=== PATIENT | female | born 1965 | race Two or more races ===

== ENCOUNTER 2023-05-26 06:21 | Day surgery (SDC) | payer OTHER ==
[2023-05-19 15:22] LABS: BASOPHILS # (AUTO) 0.1 X10'3 (0-0.2); BASOPHILS % (AUTO) 0.7 % (0-1); EOSINOPHILS # (AUTO) 0.1 X10'3 (0-0.9); EOSINOPHILS % (AUTO) 0.7 % (0-6); LYMPHOCYTES # (AUTO) 2.8 X10'3 (1.1-4.8); LYMPHOCYTES % (AUTO) 34.9 % (21-51); MEAN CORPUSCULAR HGB CONC 33.3 g/dL (33.0-36.5); MEAN CORPUSCULAR VOLUME 87.2 FL (78-98); MEAN PLATELET VOLUME 7.8 FL (7.4-10.4); MONOCYTES # (AUTO) 0.7 X10'3 (0-0.9); MONOCYTES % (AUTO) 8.9 % (2-12); NEUTROPHILS # (AUTO) 4.4 X10'3 (1.8-7.7); NEUTROPHILS % (AUTO) 54.8 % (42-75); PRE OP HEMATOCRIT 41.1 % (35.0-45.0); PRE OP HEMOGLOBIN 13.7 g/dL (12.0-16.0); PRE OP PLATELET COUNT 347 X10'3 (140-440); RED BLOOD COUNT 4.72 X10'6 (4.20-5.60); RED CELL DISTRIBUTION WIDTH 14.7 % (11.5-14.5)
[2023-05-19 15:30] LABS: ALBUMIN 3.4 G/DL (3.4-5.0); ALBUMIN/GLOBULIN RATIO 0.8 (1.1-1.5); ALKALINE PHOSPHATASE 95 IU/L (46-116); BLOOD UREA NITROGEN 10 MG/DL (7-18); BUN/CREATININE RATIO 13.2 (10.0-20.0); CALCIUM 9.4 MG/DL (8.5-10.1); CHLORIDE 101 MMOL/L (99-107); CREATININE 0.76 MG/DL (0.40-0.90); PRE OP ALT 28 U/L (30-65); PRE OP ANION GAP 7 (8-16); PRE OP AST 22 U/L (10-37); PRE OP BILIRUB, TOTAL 0.5 MG/DL (0.0-1.0); PRE OP GLUCOSE 117 MG/DL (70-104); PRE OP POTASSIUM 3.4 MMOL/L (3.4-5.1); PRE OP SODIUM 138 MMOL/L (135-145); TOTAL CARBON DIOXIDE 29.6 MMOL/L (24-32); TOTAL PROTEIN 7.5 G/DL (6.4-8.2); eGFR 78 ML/MIN
[~2023-05-26] VITALS: Ht 154.9 cm; Wt 121.4 kg
[2023-05-26] VITALS (30 sets, daily range): BP systolic 105–165; BP diastolic 71–93; PULSE 65–90; RESP 11–26; TEMP 97.3–99.3; O2SAT 75–98
[~2023-05-26 06:21] MED LIST: TRAM50TA2 PO; famotidine 20mg tablet PO ONE; ringers solution, lacted 1,000 ML IV SCH; tranexamic acid 650mg tablet PO ONE; vancomycin 1,500 MG in NS 300ml IV soln IV ONE
[2023-05-26] MEDS ORDERED: BUPIVACAINE/MELOXICAM 14 ML VIAL IL ONE ×2 (06:53→08:00)
--- NOTE | 2023-05-26 07:00 | NUR ---
CSM: PULSES PRESENT. PATIENT READ BROCHURE AND USED MUPIROCIN CREAM. EDUCATED PATIENT ON THE INCENTIVE SPIROMETER AND ITS IMPORTANCE
--- NOTE | 2023-05-26 07:30 | NUR ---
PATIENT STATES AN ALLERGY TO PCN. SHE SAYS SHE SWELLS UP EVERYWHERE AND HER THROAT STARTS TO CLOSE. NOTIFIED DR KAISER AND HE SAID TO HOLD ANCEF AND ONLY GIVE VANCO.
[2023-05-26] MEDS ORDERED: morphine 2 MG/ML inj. syringe IV PRN (08:05)
[2023-05-26] MEDS ORDERED: ondansetron/PF 4mg/2ml inj IV PRN ×2 (08:05→11:30)
[2023-05-26] MEDS ORDERED: ringers solution, lacted 1,000 ML IV SCH (08:05)
[2023-05-26] MEDS ORDERED: meperidine/PF 25mg/ml syringe IV PRN ×2 (08:05)
[2023-05-26] MEDS ORDERED: morphine 4 MG/ML inj SYRINge IV PRN (08:05)
[2023-05-26] MEDS ORDERED: proCHLORperazine 10 MG/2 ml inj IV PRN (08:05)
[2023-05-26] MEDS ORDERED: MIDAZolam 1mg/ml 10ml vial ONE (09:03)
[2023-05-26] MEDS ORDERED: fentaNYL/PF 50MCG/1 ML 2ML syringe ONE (09:03)
[2023-05-26] MEDS ORDERED: ROPIVAcaine 0.5% (5mg/ml) 30ml vial ONE (11:03)
[2023-05-26] MEDS ORDERED: propofol inj 20 ML IV ONE (11:19)
[2023-05-26] MEDS ORDERED: acetaminophen 1,000mg/100ml IV 100 ML IV ONE (11:21)
--- NOTE | 2023-05-26 11:26 | NUR ---
Received from OR via HOSPITAL BED TO RR 5, accompanied by Anesthesiologist AWILDA and report given by Anesthesiologist. PT PRESENTS ON RA, VSS. PT PRESENTS WITH 7/10 PAIN TO RIGHT LEG. WILL GIVE PAIN MEDICATION AND REASSESS. NO C/O N/V AND NO S/S OF DISTRESS. LR RUNNING THRU PIV IN LEFT FA (IV TYLENOL STARTED PER MD IN ROOM). RIGHT LEG DRESSING CDI WITH WRAP AND POWDER PACK IN PLACE. LEGS ELEVATED AND SCD'S ARE ON.
[2023-05-26] MEDS: meperidine/PF 25mg/ml syringe IV PRN ×2 (11:28→11:51)
[2023-05-26] MEDS ORDERED: bisacodyl 10mg suppository rectal RC PRN (11:30)
[2023-05-26] MEDS ORDERED: acetaminophen 325mg tablet PO PRN (11:30)
[2023-05-26] MEDS ORDERED: HYDROmorphone 1 mg/ml syringe IV PRN (11:30)
[2023-05-26] MEDS ORDERED: magnesium hydroxide 30ml (MOM) UD suspension PO PRN (11:30)
[2023-05-26] MEDS ORDERED: traMADol 50MG tablet PO PRN (11:30)
[2023-05-26] MEDS ORDERED: diphenhydrAMINE 25mg capsule PO PRN ×2 (11:30)
[2023-05-26] MEDS ORDERED: HYDROmorphone inj. 0.5 MG/0.5 ML DISP.SYRIN IV PRN (11:30)
[2023-05-26] MEDS ORDERED: naloxone 0.4 mg/ml inj IV PRN (11:30)
--- NOTE | 2023-05-26 11:57 | NUR ---
CALLED RUSSELL QUIÑONEZ [phone] WITH UPDATE ON PATIENT STATUS
--- NOTE | 2023-05-26 12:45 | NUR ---
REPOSITIONED FOR COMFORT
[2023-05-26] MEDS: potassium cl 20mEq in 1/2 NS 1,000 ML IV SCH ×2 (12:50→20:03)
[2023-05-26] MEDS: oxyCODONE IR 5mg (immed. release) tablet PO PRN ×3 (13:14→21:53)
--- NOTE | 2023-05-26 13:45 | NUR ---
PATIENT IS SITTING UP IN BED EATING LUNCH
[2023-05-26] MEDS: acetaminophen 325mg tablet PO SCH ×2 (14:00→19:52)
--- NOTE | 2023-05-26 14:23 | NUR ---
PLACED PURE WICK AND ATTACHED TO LOW CONTINUOS SUCTION
[2023-05-26] MEDS ORDERED: ceFAZolin/D5W- 1GM premix 50 ML IV SCH (16:00)
--- NOTE | 2023-05-26 16:45 | NUR ---
CALLED RUSSELL QUIÑONEZ WITH ROOM NUMBER
[2023-05-26] MEDS: ceFAZolin/D5W- 1GM premix 50 ML IV SCH (17:00)
--- NOTE | 2023-05-26 17:06 | NUR ---
PATIENT STABLE FOR TRANSFER PER MD ORDERS. PATIENT TRANSFERRED TO ROOM 4014A WITH ALL PERSONAL BELONGINGS. REPORT CALLED TO NURSE SANCHEZ AND ALL QUESTIONS, COMMENTS, AND CONCERNS WERE ANSWERED AT THIS TIME. PATIENT WAS HOOKED UP TO POST OP VITALS AND CALL LIGHT IN HAND. RIGHT KNEE DRESSING REMAINS CLEAN, DRY, AND INTACT, POWDER PACK IN PLACE. BED LOCKED AND LOW, 2 RAILS UP. PURE WICK WAS HOOKED UP TO SUCTION AND NURSE ALVARENGA AWARE OF TRANSFER.
--- NOTE | 2023-05-26 18:25 | NUR ---
Problems reprioritized. Patient report given, questions answered & plan of care reviewed with GUANAKO Santiago.
[2023-05-26] MEDS ORDERED: vancomycin/NS 1 GM ADD-VANTAGE 250 ML IV SCH (20:00)
[2023-05-26] MEDS ORDERED: sennosides 8.6mg tablet PO SCH (21:00)
[2023-05-27] MEDS: ceFAZolin/D5W- 1GM premix 50 ML IV SCH (01:00)
[2023-05-27 02:00] VITALS: BP 153/76; PULSE 89; RESP 20; TEMP 99.8; O2SAT 95
[2023-05-27] MEDS: acetaminophen 325mg tablet PO SCH ×2 (02:31→08:38)
[2023-05-27] MEDS: potassium cl 20mEq in 1/2 NS 1,000 ML IV SCH ×2 (03:11→05:00)
[2023-05-27] MEDS: oxyCODONE IR 5mg (immed. release) tablet PO PRN ×2 (04:58→11:41)
[2023-05-27 06:00] VITALS: BP 159/87; PULSE 86; RESP 16; TEMP 98.3; O2SAT 97
[2023-05-27 06:49] LABS: BASOPHILS % (AUTO) 0.3 % (0-1); EOSINOPHILS # (AUTO) 0.1 X10'3 (0-0.9); EOSINOPHILS % (AUTO) 0.6 % (0-6); HEMATOCRIT 36.1 % (35.0-45.0); HEMOGLOBIN 12.1 g/dl (12.0-16.0); LYMPHOCYTES # (AUTO) 3.1 X10'3 (1.1-4.8); LYMPHOCYTES % (AUTO) 34.9 % (21-51); MEAN CORPUSCULAR HEMOGLOBIN 29.3 PG (27.0-31.0); MEAN CORPUSCULAR HGB CONC 33.6 g/dL (33.0-36.5); MEAN CORPUSCULAR VOLUME 87.1 FL (78-98); MEAN PLATELET VOLUME 7.5 FL (7.4-10.4); MONOCYTES # (AUTO) 0.9 X10'3 (0-0.9); MONOCYTES % (AUTO) 9.9 % (2-12); NEUTROPHILS # (AUTO) 4.8 X10'3 (1.8-7.7); NEUTROPHILS % (AUTO) 54.3 % (42-75); PLATELET COUNT 304 X10'3 (140-440); RED BLOOD COUNT 4.14 X10'6 (4.20-5.60); RED CELL DISTRIBUTION WIDTH 14.5 % (11.5-14.5); WHITE BLOOD COUNT 8.9 X10'3 (4.5-11.0)
[2023-05-27 07:13] LABS: ANION GAP 5 (8-16); CHLORIDE 104 MMOL/L (99-107); POTASSIUM 3.8 MMOL/L (3.5-5.1); SODIUM 137 MMOL/L (135-145); TOTAL CARBON DIOXIDE 27.6 MMOL/L (24-32)
[2023-05-27 08:00] VITALS: RESP 18
[2023-05-27] MEDS ORDERED: aspirin 325mg tablet PO SCH (08:30)
--- NOTE | 2023-05-27 09:39 | NUR ---
Per EMR pt POD #1 s/p right TKA. Written high protein education with ONS coupons and RD contact information mailed to patient's address found in EMR. Will continue to follow and provide verbal education as able. Addendum: 05/27/23 at [address] Amended: Links added.
[2023-05-27 10:00] VITALS: BP 115/59; PULSE 90; RESP 19; TEMP 97.8; O2SAT 96
[2023-05-27 11:41] VITALS: RESP 18
[2023-05-28] MEDS ORDERED: acetaminophen 325mg tablet PO PRN (11:30)
== END 2023-05-27 12:55 | disposition home or self-care (01) ==
LOC: UNDOADMIN 06:21 → PAS IN 06:21 → PACU 06:21 → OR 06:21 → PAS IN 06:25 → UNDOADMIN 06:25 → PAS IN 11:26 → PACU 11:26 → ORTHO 4S 11:32 → EDSTATUS 12:00 → OR 18:05 → PACU 18:05 → UNDOADMOB 18:06 → ORTHO 4S 18:06 → OR 05-27 12:55
PROVIDERS: ATTEND Orthopaedic Surgery
DX: M17.11 Unilateral primary osteoarthritis, right knee (principal); E66.9 Obesity, unspecified; Z79.1 Long term (current) use of non-steroidal anti-inflammatories (NSAID); Z79.82 Long term (current) use of aspirin; Z79.891 Long term (current) use of opiate analgesic; Z79.899 Other long term (current) drug therapy; Z90.89 Acquired absence of other organs; Z98.890 Other specified postprocedural states; Z68.43 Body mass index [BMI] 50.0-59.9, adult; Z88.0 Allergy status to penicillin; Z82.3 Family history of stroke; Z82.49 Family history of ischemic heart disease and other diseases of the circulatory system
CPT/HCPCS: 20985; 27447; 36415; 80051; 80053; 82948; 85025; 87081; 93005; C1713; C1776; J0131; J2175; J2250; J2270; J2704; J2795; J3010; J3370; J3480; J7030; J7120; Z7506; Z7508; Z7512; A4215; A7000; C1758; G0378

== ENCOUNTER 2024-03-29 07:15 | Inpatient (IN) | payer MEDICAID, OTHER ==
[2024-03-27] MEDS: cefazolin 2gm/D5W 100mL 100 ML IV ONE (05:30)
[2024-03-27] MEDS: DOCUMENT DATE & TIME OF BETA-BLOCKER PO ONE (05:30)
[~2024-03-29] VITALS: Ht 154.9 cm; Wt 124.7 kg
[2024-03-29] VITALS (16 sets, daily range): BP systolic 126–152; BP diastolic 53–94; PULSE 69–85; RESP 12–20; TEMP 97.2–97.7; O2SAT 93–100
[2024-03-29] MEDS: ringers solution, lacted 1,000 ML IV SCH ×2 (05:30→12:45)
[2024-03-29] MEDS: tranexamic acid 650mg tablet PO ONE ×2 (05:30→09:27)
[2024-03-29] MEDS: DOCUMENT DATE & TIME OF BETA-BLOCKER PO ONE (05:30)
[2024-03-29] MEDS: famotidine 20mg tablet PO ONE ×2 (05:30→09:27)
[~2024-03-29 07:15] MED LIST changes: +IBUP-1986 PO; +LOSARTAN PO; +METO-384 PO; -famotidine 20mg tablet PO ONE; -tranexamic acid 650mg tablet PO ONE
[2024-03-29] MEDS: vancomycin 1,500 MG in NS 300ml IV soln IV ONE (09:27)
[2024-03-29 09:31] LABS: BASOPHILS % (AUTO) 0.5 % (0-1); EOSINOPHILS # (AUTO) 0.1 X10'3 (0-0.9); EOSINOPHILS % (AUTO) 0.6 % (0-6); LYMPHOCYTES # (AUTO) 3.6 X10'3 (1.1-4.8); LYMPHOCYTES % (AUTO) 43.9 % (21-51); MEAN CORPUSCULAR HEMOGLOBIN 27.6 PG (27.0-31.0); MEAN CORPUSCULAR HGB CONC 32.5 g/dL (33.0-36.5); MEAN CORPUSCULAR VOLUME 84.8 FL (78-98); MEAN PLATELET VOLUME 7.5 FL (7.4-10.4); MONOCYTES # (AUTO) 0.6 X10'3 (0-0.9); MONOCYTES % (AUTO) 7.7 % (2-12); NEUTROPHILS # (AUTO) 3.9 X10'3 (1.8-7.7); NEUTROPHILS % (AUTO) 47.3 % (42-75); PRE OP HEMOGLOBIN 12.7 g/dL (12.0-16.0); PRE OP PLATELET COUNT 372 X10'3 (140-440); PRE OP WHITE BLOOD COUNT 8.2 10'3 (4.8-10.8); RED CELL DISTRIBUTION WIDTH 16.3 % (11.5-14.5)
[2024-03-29 09:49] LABS: ALBUMIN 3.4 G/DL (3.4-5.0); ALBUMIN/GLOBULIN RATIO 0.9 (1.1-1.5); ALKALINE PHOSPHATASE 92 IU/L (46-116); BLOOD UREA NITROGEN 10 MG/DL (7-18); BUN/CREATININE RATIO 20.8 (10.0-20.0); CALCIUM 9.1 MG/DL (8.5-10.1); CHLORIDE 103 MMOL/L (99-107); CREATININE 0.48 MG/DL (0.40-0.90); PRE OP ALT 21 U/L (30-65); PRE OP ANION GAP 8 (8-16); PRE OP AST 21 U/L (10-37); PRE OP BILIRUB, TOTAL 0.6 MG/DL (0.0-1.0); PRE OP GLUCOSE 96 MG/DL (70-104); PRE OP SODIUM 140 MMOL/L (135-145); TOTAL CARBON DIOXIDE 29.1 MMOL/L (24-32); TOTAL PROTEIN 7.4 G/DL (6.4-8.2); eCRCL 94 ML/MIN; eGFR > 90 ML/MIN
[2024-03-29] MEDS ORDERED: fentaNYL/PF 50MCG/1 ML 2ML syringe ONE (10:18)
[2024-03-29] MEDS ORDERED: MIDAZolam 1mg/ml 10ml vial ONE (10:18)
[2024-03-29] MEDS ORDERED: BUPIVAcaine/dex-water/PF 7.5 mg/ml 2ml ampul ONE (10:32)
[2024-03-29] MEDS: cefazolin 2gm/D5W 100mL 100 ML IV ONE (10:50)
[2024-03-29] MEDS ORDERED: propofol inj 20 ML IV ONE (11:11)
[2024-03-29] MEDS ORDERED: LIDOcaine 2% (20mg/ml) 5ml vial ONE (11:11)
[2024-03-29] MEDS: BUPIVACAINE/MELOXICAM 14 ML VIAL IL ONE ×2 (11:40→13:00)
[2024-03-29] MEDS ORDERED: labetalol 20mg/4ml (5mg/ml) syringe IV PRN (12:45)
[2024-03-29] MEDS ORDERED: meperidine/PF 25mg/ml syringe IV PRN ×2 (12:45)
[2024-03-29] MEDS ORDERED: morphine 2 MG/ML inj. syringe IV PRN (12:45)
[2024-03-29] MEDS ORDERED: ondansetron/PF 4mg/2ml inj IV PRN ×2 (12:45→13:30)
[2024-03-29] MEDS ORDERED: proCHLORperazine 10 MG/2 ml inj IV PRN (12:45)
[2024-03-29] MEDS ORDERED: morphine 4 MG/ML inj SYRINge IV PRN (12:45)
[2024-03-29] MEDS: mineral oil 10ml sterile, topical TP ONE (12:45)
[2024-03-29] MEDS ORDERED: enalaprilat dihydrate 2.5mg/2ml vial IV PRN (12:45)
[2024-03-29] MEDS ORDERED: ondansetron/PF 4mg/2ml inj ONE (12:51)
[2024-03-29] MEDS: ROPIVAcaine 0.5% (5mg/ml) 30ml vial ONE (13:00)
[2024-03-29] MEDS ORDERED: diphenhydrAMINE 25mg capsule PO PRN ×2 (13:30)
[2024-03-29] MEDS ORDERED: acetaminophen 325mg tablet PO PRN (13:30)
[2024-03-29] MEDS ORDERED: bisacodyl 10mg suppository rectal RC PRN (13:30)
[2024-03-29] MEDS ORDERED: naloxone 0.4 mg/ml inj IV PRN (13:30)
[2024-03-29] MEDS ORDERED: HYDROmorphone inj. 0.5 MG/0.5 ML DISP.SYRIN IV PRN (13:30)
[2024-03-29] MEDS ORDERED: oxyCODONE IR 5mg (immed. release) tablet PO PRN (13:30)
[2024-03-29] MEDS ORDERED: magnesium hydroxide 30ml (MOM) UD suspension PO PRN (13:30)
[2024-03-29] MEDS ORDERED: HYDROmorphone 1 mg/ml syringe IV PRN (13:30)
[2024-03-29] MEDS: acetaminophen 1,000mg/100ml IV 100 ML IV SCH (13:46)
[2024-03-29] MEDS: meperidine/PF 25mg/ml syringe IV PRN (13:47)
[2024-03-29] MEDS ORDERED: ceFAZolin/D5W- 1GM premix 50 ML IV SCH ×2 (16:00→16:01)
[2024-03-29] MEDS: ceFAZolin/D5W- 1GM premix 50 ML IV SCH (19:47)
[2024-03-29] MEDS: vancomycin/NS 1 GM ADD-VANTAGE 250 ML IV SCH (20:18)
[2024-03-29] MEDS: sennosides 8.6mg tablet PO SCH (20:42)
[2024-03-29] MEDS: ibuprofen tablet 400 MG TABLET PO SCH (20:42)
[2024-03-29] MEDS: traMADol 50MG tablet PO SCH (20:43)
[2024-03-29] MEDS: potassium cl 20mEq in 1/2 NS 1,000 ML IV SCH (21:30)
[2024-03-29] MEDS: oxyCODONE IR 5mg (immed. release) tablet PO PRN (23:40)
[2024-03-30 02:00] VITALS: BP 130/70; PULSE 66; TEMP 98.4; O2SAT 93
[2024-03-30] MEDS: acetaminophen 325mg tablet PO SCH (02:48)
[2024-03-30 06:05] LABS: BASOPHILS % (AUTO) 0 % (0-1); EOSINOPHILS % (AUTO) 0 % (0-6); HEMATOCRIT 35.2 % (35.0-45.0); HEMOGLOBIN 11.3 g/dl (12.0-16.0); LYMPHOCYTES # (AUTO) 1.9 X10'3 (1.1-4.8); LYMPHOCYTES % (AUTO) 15.6 % (21-51); MEAN CORPUSCULAR HEMOGLOBIN 27.4 PG (27.0-31.0); MEAN CORPUSCULAR VOLUME 85.4 FL (78-98); MEAN PLATELET VOLUME 7.8 FL (7.4-10.4); MONOCYTES # (AUTO) 0.8 X10'3 (0-0.9); MONOCYTES % (AUTO) 6.6 % (2-12); NEUTROPHILS # (AUTO) 9.6 X10'3 (1.8-7.7); NEUTROPHILS % (AUTO) 77.8 % (42-75); PLATELET COUNT 345 X10'3 (140-440); RED BLOOD COUNT 4.12 X10'6 (4.20-5.60); WHITE BLOOD COUNT 12.3 X10'3 (4.5-11.0)
[2024-03-30 06:17] LABS: ANION GAP 5 (8-16); CHLORIDE 105 MMOL/L (99-107); POTASSIUM 4.4 MMOL/L (3.5-5.1); SODIUM 137 MMOL/L (135-145)
[2024-03-30] MEDS: metoprolol succinate 25mg (24-HOUR) SR. Tablet PO SCH (09:49)
[2024-03-30 09:50] VITALS: BP_SYST 108; PULSE 94
[2024-03-30] MEDS: losartan 50mg tablet PO SCH (09:50)
[2024-03-30] MEDS: aspirin 325mg tablet PO SCH (09:51)
[2024-03-30 10:39] VITALS: RESP 16; O2SAT 95
[2024-03-30 12:50] VITALS: RESP 18
[2024-03-30] MEDS ORDERED: celeCOXIB 100mg capsule PO SCH (20:00)
[2024-03-31] MEDS ORDERED: acetaminophen 325mg tablet PO PRN (18:20)
== END 2024-03-30 15:12 | disposition home or self-care (01) | DRG 326 ==
LOC: PAS 07:15 → EDSTATUS 10:15 → PAS 17:19 → ORTHO 4S 17:19
PROVIDERS: ADMIT Orthopaedic Surgery; ATTEND Orthopaedic Surgery
PROC: 8E0YXBZ Computer Assisted Procedure of Lower Extremity (ICD-10-PCS; 2024-03-29)
PROC: 8E0Y0CZ Robotic Assisted Procedure of Lower Extremity, Open Approach (ICD-10-PCS; 2024-03-29)
PROC: 3E0T3BZ Introduction of Anesthetic Agent into Peripheral Nerves and Plexi, Percutaneous Approach (ICD-10-PCS; 2024-03-29)
PROC: 3E0T33Z Introduction of Anti-inflammatory into Peripheral Nerves and Plexi, Percutaneous Approach (ICD-10-PCS; 2024-03-29)
PROC: 0SRD0J9 Replacement of Left Knee Joint with Synthetic Substitute, Cemented, Open Approach (ICD-10-PCS; principal; 2024-03-29 10:32)
DX: M17.12 Unilateral primary osteoarthritis, left knee (principal); Z68.43 Body mass index [BMI] 50.0-59.9, adult; E66.01 Morbid (severe) obesity due to excess calories
CPT/HCPCS: 36415; 80051; 80053; 82948; 85025; 87081; 93005; 97116; 97161; 97530; A4215; A4615; A6449; A7000; C1713; C1776; G0378; J0131; J0690; J1100; J2175; J2250; J2405; J2704; J2795; J3010; J3370; J3480; J3490; J7120